=== PATIENT | male | born 1940 | race Caucasian/White ===

== ENCOUNTER → 2017-11-23 | Outpatient (CLI) | payer MEDICARE ==
[2017-11-23 16:07] LABS: ADD MAN DIFF? NO
[2017-11-23 16:14] LABS: BASO % 1 % (0-3); EOS # 0.2 x10^3/uL (0.0-0.7); EOS % 6 % (0-3); HEMATOCRIT 35.3 % (39.0-53.0); HEMOGLOBIN 11.8 g/dL (13.0-17.5); LYMPH % 24 % (24-48); MEAN CORPUSCULAR HEMOGLOBIN 30 pg (25-35); MEAN CORPUSCULAR HGB CONC 33 g/dL (31-37); MEAN CORPUSCULAR VOLUME 90 fL (79-100); MONO # 0.5 x10^3/uL (0.0-1.1); MONO % 13 % (0-9); NEUT # 2.4 x10^3uL (1.8-7.7); NEUT % 57 % (31-73); PLATELET COUNT 146 x10^3/uL (140-400); RED BLOOD COUNT 3.93 x10^6/uL (4.30-5.70); RED CELL DISTRIBUTION WIDTH 14.4 % (11.5-14.5); WHITE BLOOD COUNT 4.3 x10^3/uL (4.0-11.0)
[2017-11-23 16:34] LABS: ALBUMIN 3.2 g/dL (3.4-5.0); ALBUMIN/GLOBULIN RATIO 0.8 (1.0-1.7); ALK PHOS 289 U/L (46-116); ALT (SGPT) 38 U/L (16-63); ANION GAP 9 (6-14); AST (SGOT) 43 U/L (15-37); BLOOD UREA NITROGEN 56 mg/dL (8-26); BUN/CREATININE RATIO 22 (6-20); CALCIUM 9.6 mg/dL (8.5-10.1); CARBON DIOXIDE 26 mmol/L (21-32); CHLORIDE 108 mmol/L (98-107); CREATININE 2.5 mg/dL (0.7-1.3); GFR 25.2; GLUCOSE 79 mg/dL (70-99); SODIUM 143 mmol/L (136-145); TOTAL BILIRUBIN 0.8 mg/dL (0.2-1.0); TOTAL PROTEIN 7.3 g/dL (6.4-8.2)
[2017-11-24 03:14] LABS: MRSA BY PCR Negative (Negative)
== END | disposition home or self-care (01) ==
LOC: SURGPAT 15:03
DX: M48.061 Spinal stenosis, lumbar region without neurogenic claudication (principal); M47.896 Other spondylosis, lumbar region; I10 Essential (primary) hypertension; E11.9 Type 2 diabetes mellitus without complications; Z79.4 Long term (current) use of insulin
CPT/HCPCS: 36415; 80053; 83036; 85025; 87641

== ENCOUNTER 2017-11-25 10:14 | Day surgery (SDC) | payer MEDICARE ==
[~2017-11-25 10:14] MED LIST: BUPIVAC MPF-EPI 0.5%-1:200000 30 ML VIAL. INJ; HYDROmorphone 2 MG/ML VIAL IV; LIDOCAINE 1% PF 2 ML VIAL. ID; ONDANSETRON PF 4 MG/2 ML VIAL. IV; PROCHLORPERAZINE 10 MG/2 ML VIAL. IV; ceFAZolin 2GM PREMIX 2 GM/50 ML BAG IV; fentaNYL PF VIAL 100 MCG/2 ML VIAL IV
[2017-11-25] MEDS ORDERED: MIDAZOLAM HCL/PF 2 MG/2 ML VIAL. (10:23)
[2017-11-25] MEDS ORDERED: REMIFENTANIL 2 MG VIAL. IV (10:23)
[2017-11-25] MEDS ORDERED: ROCURONIUM 50 MG/5 ML VIAL. (10:23)
[2017-11-25] MEDS ORDERED: ONDANSETRON PF 4 MG/2 ML VIAL. (10:25)
[2017-11-25] MEDS ORDERED: PHENYLEPHRINE 10 MG/ML VIAL. (10:25)
[2017-11-25] MEDS ORDERED: DESFLURANE > 120 MINUTES IH (10:25)
[2017-11-25] MEDS ORDERED: DEXAMETHASONE SOD PHOS 20 MG/5 ML VIAL. (10:25)
[2017-11-25] MEDS ORDERED: PROPOFOL 20 ML IV (10:25)
[2017-11-25] MEDS ORDERED: GLYCOPYRROLATE 1 MG/5 ML VIAL. (10:25)
[2017-11-25] MEDS ORDERED: PROPOFOL 50 ML IV ×2 (10:26→12:34)
[2017-11-25] MEDS: IV RINGERS,LACTATED 1000ML 1,000 ML IV (11:14)
[2017-11-25] MEDS ORDERED: fentaNYL PF VIAL 100 MCG/2 ML VIAL (12:22)
[2017-11-25] MEDS ORDERED: NEOSTIGMINE METHYLSULFATE 5 MG/5 ML SYRINGE. (12:35)
[2017-11-25] MEDS: THROMBIN TOPICAL 20,000 UNIT SPRAY.SYRN KIT TP (12:37)
[2017-11-25] MEDS: KETOROLAC 60 MG/2 ML INJ FOR OR. (12:37)
[2017-11-25] MEDS: BACITRACIN 50,000 UNIT in IV NORMAL SALINE 1000ML BAG 1,000 ML IRR (12:37)
[2017-11-25] MEDS: GELATIN SPONGE SIZE 100. (12:37)
[2017-11-25] MEDS: EPINEPHrine 1 MG/ML VIAL INJ (12:37)
[2017-11-25] MEDS: BUPIVACAINE MPF 0.5% 30 ML VIAL. IJ (12:37)
[2017-11-25] MEDS ORDERED: ePHEDrine PF IN SALINE 50 MG/5 ML DISP.SYRIN IV (14:00)
[2017-11-25] MEDS ORDERED: REMIFENTANIL 1 MG VIAL. IV (14:36)
[2017-11-25 15:18] LABS: POC GLUCOSE 135 mg/dL (70-99)
[2017-11-25] MEDS: MORPHINE SULFATE 4 MG/ML DISP.SYRIN. IV ×2 (15:50→16:17)
[2017-11-25] MEDS ORDERED: HYDROcodone/APAP 7.5/325MG 1 TAB TABLET PO (16:45)
[2017-11-25] MEDS: HYDROcodone/APAP 7.5/325MG 1 TAB TABLET PO (17:15)
== END 2017-11-25 17:27 | disposition home or self-care (01) ==
LOC: SURG 10:14
DX: M48.062 Spinal stenosis, lumbar region with neurogenic claudication (principal); I12.9 Hypertensive chronic kidney disease with stage 1 through stage 4 chronic kidney disease, or unspecified chronic kidney disease; E11.22 Type 2 diabetes mellitus with diabetic chronic kidney disease; N18.9 Chronic kidney disease, unspecified; G47.33 Obstructive sleep apnea (adult) (pediatric); I25.2 Old myocardial infarction; I25.10 Atherosclerotic heart disease of native coronary artery without angina pectoris; E78.5 Hyperlipidemia, unspecified; Z94.4 Liver transplant status; Z98.890 Other specified postprocedural states; Z83.3 Family history of diabetes mellitus; Z79.899 Other long term (current) drug therapy; Z79.4 Long term (current) use of insulin; Z86.718 Personal history of other venous thrombosis and embolism; Z85.46 Personal history of malignant neoplasm of prostate; Z85.05 Personal history of malignant neoplasm of liver
CPT/HCPCS: 63030; 76000; 82962; 88304; 88311; 97162-GP; 97530-GP; J0171; J0690; J1100; J1885; J2250; J2270; J2405; J2704; J2710; J3010; J3490; J7030

== ENCOUNTER → 2018-03-08 | Outpatient (CLI) | payer MEDICARE | END | disposition home or self-care (01) | LOC: KCIC MRI 10:30 | DX: M48.061 Spinal stenosis, lumbar region without neurogenic claudication (principal); M51.36 Other intervertebral disc degeneration, lumbar region | CPT/HCPCS: 72148 ==

== ENCOUNTER → 2018-10-27 | Outpatient (CLI) | payer MEDICARE ==
[2017-11-25 16:12] VITALS: BP 175/86
[~2018-10-27] MED LIST changes: +ACET325T9 PO; +APIX5TAB PO; +ASPI-630 PO; +ATOR40TA PO; -BUPIVAC MPF-EPI 0.5%-1:200000 30 ML VIAL. INJ; +CARV3.1210 PO; +CHOL10003 PO; +CIPR500T PO; +CYCL25CA PO; +DOCU-109 PO; +GABA300C18 PO; +HYDR-2765 PO; -HYDROmorphone 2 MG/ML VIAL IV; +INSU100C4 SQ; +INSU100I13 SQ; +INSU300I SQ; +IOHEXOL 180 MG/ML 10 ML VIAL. ONE; +LEVO150T5 PO; -LIDOCAINE 1% PF 2 ML VIAL. ID; +MAGN400T3 PO; +NITR0.4T SL; +OMEG1CAP6 PO; -ONDANSETRON PF 4 MG/2 ML VIAL. IV; +OXYB5TAB7 PO; +PANT20TA2 PO; -PROCHLORPERAZINE 10 MG/2 ML VIAL. IV; +SILD50TA PO; +TAMS0.4C97 PO; +TRAM50TA PO; -ceFAZolin 2GM PREMIX 2 GM/50 ML BAG IV; -fentaNYL PF VIAL 100 MCG/2 ML VIAL IV; +methylPREDNISolone ACETATE 40 MG/ML VIAL. ONE; +methylPREDNISolone ACETATE 80 MG/ML VIAL. ONE
--- NOTE | 2018-10-28 02:29 | PAIN ---
DATE OF SERVICE: 10/27/2018 INITIAL CONSULTATION FOR PAIN CLINIC CHIEF COMPLAINT: Low back and bilateral lower extremity pain. HISTORY OF PRESENT ILLNESS: This is a 78-year-old male who presents with history of pain for about 10 months in the low back, more on the left than the right side, radiating to posterior gluteus and posterior thigh to some extent, but mainly across the low back. The patient reports he had surgery with diskectomy on 11/2017 and really had no significant improvement after the surgery. Pain has been getting worse, mainly noted with walking; better with sitting, better with lying down; does not awaken him from sleep at night, he can sleep through the night; better with sitting; does not have significant pain, but with standing and walking, the pain begins after about 4-5 minutes. The patient reports he has to stop and wait after he walks for about 5-10 minutes and rest to take care of the pain. The patient reports no bowel or bladder incontinence. Again, significant fatigability in the lower extremities, mainly in the left side. The patient reports it is sharp, stabbing and aching across the low back with numbness and tingling into the hips and legs, mostly on the left side, with some burning and cramping in quality in the back as well. The patient tried physical therapy, doing some stretching exercises, he continues to walk daily even though the pain is limiting him from doing this as much as he would like. He is taking Tylenol, which has not been decreasing the pain significantly. The patient reports his pain is 8 on a scale of 10 currently, can be as low as 1 or 2 with sitting and does not awaken him from sleep. The patient reports disability rate from 0-10, 10 being the worst is 8 in all categories, family and home responsibilities, recreation, social activity, sexual behavior, occupation, self-care and life support activities. The patient did have an MRI scan dated 03/08/2018 showing post bilateral hemilaminotomy at L3-L4 with change in degenerative disk disease throughout the lumbar spine, mild central canal stenosis at L2-L3, moderate central spinal canal stenosis at L4-L5 and severe left-sided central spinal canal stenosis at L5-S1 with disk bulge and left paracentral focal disk herniation at L5-S1 and extruding inferiorly and laterally to the left side. The patient reports no loss of function, but again significant fatigability, especially in the left leg, with both legs with walking. PAST MEDICAL HISTORY: Significant for hypertension; arthritis; type 2 diabetes, non-insulin dependent; cirrhosis of the liver; coronary artery disease. PREVIOUS SURGERY: Include liver transplant in 2001, lumbar laminectomy in 2018, bilateral torn ACL and seed placement for previous prostate cancer. CURRENT MEDICATIONS: Include ciprofloxacin, fish oil, insulin, docusate, oxybutynin, Viagra, Flomax, Protonix, nitroglycerin, magnesium, levothyroxine, ____, cholecalciferol, carvedilol, Lipitor and Tylenol. ALLERGIES: The patient has no known drug allergies. FAMILY HISTORY: Significant for heart disease, high blood pressure and diabetes. SOCIAL HISTORY: The patient does not drink alcohol; does not smoke cigarettes or other tobacco products; does not use any illegal, illicit or recreational drugs. He is marries with his spouse, lives locally in [place], [place]. Reports he is currently retired. REVIEW OF SYSTEMS: The patient's review of systems is positive for those items mentioned in history of present illness. All systems reviewed and otherwise negative. It is complete, full and well documented on the patient's chart. PHYSICAL EXAMINATION: VITAL SIGNS: The patient's blood pressure is 161/80, pulse 77, respirations are 18, temperature 98.0 degrees Fahrenheit, height is 5 feet 8-1/2 inches, weight is 216 pounds. GENERAL: The patient is awake, alert, oriented, appropriate, very pleasant demeanor. HEENT: Head shows normocephalic, atraumatic. Extraocular movements intact and symmetrical. Oral cavity: Mucous membranes moist and pink. Dentition is intact. NECK: Shows anterior throat supple without palpable lymphadenopathy noted. Swallow reflex is symmetrical. CHEST: Shows normal on inspection. Breath sounds are clear to auscultation bilaterally. HEART: Shows S1, S2 clear. No murmurs auscultated. ABDOMEN: Obese and soft, nontender, nondistended. The patient has well-healed surgical scarring on inspection. With palpation shows some mild tenderness, but only diffusely without organomegaly noted. No rebound or guarding demonstrated. BACK: Shows spine grossly in the midline. Slight exaggeration of thoracic kyphosis, normal cervical lordotic curvature and some flattening of lumbar lordotic curvature. Well-healed surgical scar in the lumbar distribution. Lumbar paraspinous muscle shows symmetrical on inspection; on palpation, shows some moderate tenderness diffusely as well in the low lumbar distribution only without radiation. No trigger points. No atrophy, hypertrophy or symmetry. The patient has no tenderness over the spinous processes, sacrum or sacroiliac regions. The patient has good rotational motion of the lumbar spine, both laterally greater than 10 degrees right and left as well as extension greater than 10 degrees, forward flexion 45 degrees without pain reported in any of these rotational maneuvers including extension. EXTREMITIES: Lower extremities show deep tendon reflexes at 1+ in the patella and tendo calcaneus tendons are equal. Motor exam is strong with 5/5 dorsiflexion, extension, quadriceps and hamstring flexion symmetrical without deficit. Peripheral pulses are 1+ posterior tibia. No peripheral edema is noted bilaterally. Lower extremities are warm and dry to touch, equal in color and appearance. Straight leg raise noted to be negative for reproduction of any radicular symptoms bilaterally. Gaenslen's and Bucky's maneuvers are negative bilaterally as well. SKIN: Shows warm and dry, good turgor. No edema. No sores, rashes or bruising. NEUROLOGIC: The patient is able to stand, stand on his toes without significant difficulty or loss of balance, walks with a slight shuffling gait, does not appear to favor the right or left lower extremity significantly, not using any assistive devices to ambulate. IMPRESSION: This is a 78-year-old male with: 1. Approximate 10-month history of increasing pain in the low back, bilateral lower extremities, left greater than right. 2. MRI scan of lumbar spine as noted. 3. History of lumbar laminectomy and diskectomy at L3-L4. 4. Hypertension. 5. Arthritis. 6. Diabetes. 7. History of prostate cancer. PLAN: Options were discussed with the patient including conservative medical management, physical therapy, interventional techniques. He would like to pursue interventional techniques. We discussed a lumbar epidural steroid injection using description as well as anatomical models to describe the procedure. Risks were then discussed including, but not limited to bleeding, infection, possibility of epidural hematoma and subsequent neurological compromise, dural puncture, headaches, spinal cord and/or nerve damage, side effects of steroid medication and poor results regarding pain control. The patient understands and wished to proceed. The patient will return to clinic in approximately 2 weeks for followup. She was counseled as to return appointment, activity level and side effects to be aware of. DIAGNOSIS: Lumbar radiculopathy with lumbar degenerative disk disease, post-lumbar laminectomy syndrome. PROCEDURE: Lumbar epidural steroid injection, translaminar approach L5-S1 level using C-arm fluoroscopic guidance under sterile prep and drape using local anesthetic. MEDICATION INJECTED: A total of 120 mg Depo-Medrol plus 10 mL of preservative-free normal saline and 2 mL of Isovue for contrast. CONDITION AT DISCHARGE: Stable. The patient tolerated the procedure well, had no complications. KAITLIN SUMNER MD DR: NJ/jasmin JOB#: [id number] / [id number]
== END | disposition home or self-care (01) ==
LOC: PNCL 13:02
PROVIDERS: ATTEND Anesthesiology
DX: M51.16 Intervertebral disc disorders with radiculopathy, lumbar region (principal); M96.1 Postlaminectomy syndrome, not elsewhere classified; I10 Essential (primary) hypertension; E11.9 Type 2 diabetes mellitus without complications; M19.90 Unspecified osteoarthritis, unspecified site; Z98.890 Other specified postprocedural states; Z85.46 Personal history of malignant neoplasm of prostate; I25.10 Atherosclerotic heart disease of native coronary artery without angina pectoris; K74.60 Unspecified cirrhosis of liver; Z79.4 Long term (current) use of insulin; Z79.899 Other long term (current) drug therapy; Z82.49 Family history of ischemic heart disease and other diseases of the circulatory system; Z83.3 Family history of diabetes mellitus
CPT/HCPCS: 62323; J1030; J1040; Q9965

== ENCOUNTER → 2019-01-12 | Outpatient (CLI) | payer MEDICARE ==
[2017-11-25 16:12] VITALS: BP 175/86
[~2019-01-12] MED LIST changes: -IOHEXOL 180 MG/ML 10 ML VIAL. ONE; -methylPREDNISolone ACETATE 40 MG/ML VIAL. ONE; -methylPREDNISolone ACETATE 80 MG/ML VIAL. ONE
--- NOTE | 2019-01-12 14:28 | RAD ---
Lateral lumbar spine-3 views, 01/12/2019: History: Back pain, previous back surgery Lateral views of the lumbar spine were obtained in a supine position as well as in an upright position with flexion and extension as requested. There is is disc space narrowing and moderate marginal spurring throughout the lumbar spine. There are moderate degenerative changes involving multiple facet joints bilaterally. There is slight retrolisthesis of L2 relative to L3 which does not appear to change significantly with flexion and extension. No fracture is identified on this limited exam. Aortic calcific plaquing is evident. There is anterior bulging or tortuosity of the infrarenal abdominal aorta. IMPRESSION: 1. Moderate multilevel degenerative change. 2. Minimal retrolisthesis at L2-3.
== END | disposition home or self-care (01) ==
LOC: RAD 13:06
PROVIDERS: ATTEND Neurological Surgery
DX: M48.061 Spinal stenosis, lumbar region without neurogenic claudication (principal); M47.816 Spondylosis without myelopathy or radiculopathy, lumbar region; M43.16 Spondylolisthesis, lumbar region; I70.0 Atherosclerosis of aorta
CPT/HCPCS: 72100

== ENCOUNTER → 2019-05-09 | Outpatient (CLI) | payer MEDICARE ==
[2017-11-25 16:12] VITALS: BP 175/86
[~2019-05-09] MED LIST changes: -NITR0.4T SL; +NITR0.4T24 SL
--- NOTE | 2019-05-09 15:16 | KCIC ---
MRI of the lumbar spine without contrast 05/09/2019 CLINICAL HISTORY: Low back pain. History of previous lumbar spine surgery. Recent fall over the last 3 weeks with increased pain. TECHNIQUE: Unenhanced T1-weighted and T2-weighted sagittal and axial and inversion recovery sagittal images of the lumbar spine were obtained. FINDINGS: Comparison study is dated 03/08/2018. Very mild S-shaped curvature of the thoracolumbar spine is seen. Degenerative signal changes are seen involving all of the disks of the lumbar spine. Degenerative signal changes are seen within the marrow surrounding these discs. Loss of height of the L3-4, L4-5 and L5-S1 discs is noted. The conus medullaris is normal morphology, position, and signal characteristics. At the L1-2 disc space there is a mild generalized disc bulge. Degenerative changes are seen involving the facet joints bilaterally. There is mild ligamentum flavum hypertrophy bilaterally. These findings do not result in significant central spinal canal or neural foraminal stenosis. At the L2-3 disc space there is a mild to moderate generalized disc bulge. Degenerative changes are seen involving the facet joints bilaterally. There is moderate ligamentum flavum hypertrophy bilaterally. These findings when combined result in mild central spinal canal stenosis. Mild right greater than left neural foraminal stenosis is seen. At the L3-4 disc space the patient is post bilateral hemilaminotomy. There is a mild to moderate generalized disc bulge. This is eccentric to the right. Degenerative changes are seen involving the facet joints bilaterally. These findings do not result in significant central spinal canal stenosis. Mild to moderate right greater than left neural foraminal stenosis is seen. At the L4-5 disc space there is a mild to moderate generalized disc bulge. Degenerative changes are seen involving the facet joints bilaterally. There is mild to moderate ligamentum flavum hypertrophy bilaterally. These findings when combined result in mild to moderate central spinal canal stenosis. Mild to moderate left greater than right neural foraminal stenosis is seen. At the L5-S1 disc space there is a mild to moderate generalized disc bulge. Superimposed on this disc bulge is a left paracentral focal disc herniation which extrudes inferiorly and laterally to the left. This demonstrates decreased signal intensity on the T1-weighted, T2-weighted and inversion recovery images suggesting that it may be partially calcified. It measures 1.3 x 1.3 x 0.9 cm in craniocaudal, transverse and AP dimensions.It has not significantly changed when compared to the previous examination. Degenerative changes are seen involving the facet joints bilaterally. These findings result in severe left-sided central spinal canal stenosis. Moderate bilateral neural foraminal stenosis is seen. IMPRESSION: 1. Post bilateral hemilaminotomy at L3-4. 2. The changes of degenerative disc disease are seen throughout the lumbar spine. These findings result in mild central spinal canal stenosis at L2-3, mild to moderate central spinal canal stenosis at L4-5 and severe left-sided central spinal canal stenosis at L5-S1. Multilevel neural foraminal stenosis of varying severity is seen as discussed above. Electronically signed by: rAik Flores MD (05/09/2019 3:13 PM) [id number]
== END | disposition home or self-care (01) ==
LOC: KCIC MRI 13:43
PROVIDERS: ATTEND Neurological Surgery
DX: M51.36 Other intervertebral disc degeneration, lumbar region (principal); M51.27 Other intervertebral disc displacement, lumbosacral region; M48.07 Spinal stenosis, lumbosacral region; M89.38 Hypertrophy of bone, other site
CPT/HCPCS: 72148

== ENCOUNTER → 2019-06-07 | Outpatient (CLI) | payer MEDICARE ==
[2017-11-25 16:12] VITALS: BP 175/86
[~2019-06-07] MED LIST changes: +BUPIVACAINE MPF 0.25% 10 ML VIAL. ONE; +IOHEXOL 180 MG/ML 10 ML VIAL. ONE; -MAGN400T3 PO; +MAGN400T5 PO; +OXYB5TAB10 PO; -OXYB5TAB7 PO; +methylPREDNISolone ACETATE 40 MG/ML VIAL. ONE; +methylPREDNISolone ACETATE 80 MG/ML VIAL. ONE
--- NOTE | 2019-06-07 10:25 | PAIN ---
DATE OF SERVICE: 06/07/2019 PROGRESS NOTE FOR PAIN CLINIC DIAGNOSES: Lumbar degenerative disk disease and lumbar post-laminectomy syndrome, lumbar and lumbosacral spondylosis. HISTORY OF PRESENT ILLNESS: The patient is a 79-year-old male who returns for followup status post lumbar epidural steroid injection. He was last seen on 10/27/2018. The patient reports no significant increase or decrease in pain. He has recently seen his neurosurgeon, who is not recommending any surgery at this time and is recommending some other modalities of conservative treatment. We discussed facet joint blocks with him on his last visit and he would like to proceed with that today. The patient reports the pain is seen mainly in the low back, is not radiating into the lower extremities as much or as frequently as it was, but still significant pain in the low back itself with walking, especially over about 10-15 minutes that he has to sit down to decrease the pain, which does decrease the pain fairly significantly within a few minutes. The patient reports it does not bother him when he is sitting or lying down, does not awaken him from sleep at night. The patient reports the pain is 8 on a scale of 10 at its worst, average and least at all times, and is 8 today. The patient reports it is aching and dull across the low back, again worse with extension of the lumbar spine and axial loading in the low back, better with forward flexion and with sitting, exacerbated by walking. The patient reports no new motor or sensory deficits, no new bowel or bladder incontinence. The patient did have a new MRI scan, which we reviewed with him and his spouse, showing some changes of hemilaminotomy at L3-L4, degenerative disk disease throughout the lumbar spine resulting in mild central spinal canal stenosis and [id number] central spinal canal stenosis at L4-L5, and severe left-sided central spinal canal stenosis at L5-S1. PHYSICAL EXAMINATION: VITAL SIGNS: The patient's blood pressure is 147/62, pulse 67, respirations 18, temperature 98.2 degrees Fahrenheit, weight is 221 pounds. GENERAL: The patient is awake, alert, oriented, appropriate, very pleasant demeanor. HEENT: Head is normocephalic, atraumatic. Extraocular movements are intact and symmetrical. Oral cavity: Mucous membranes are moist and pink. Dentition is intact. NECK: Shows anterior throat supple without palpable lymphadenopathy noted. Swallow reflex is symmetrical. CHEST: Shows normal on inspection. Breath sounds are clear to auscultation bilaterally. HEART: Shows S1, S2 clear. No murmurs auscultated. ABDOMEN: Soft, nontender, nondistended. No palpable organomegaly is noted. No rebound or guarding demonstrated. BACK: Shows spine grossly in midline, normal appearing thoracic kyphosis and minor flattening of lumbar lordotic curvature. Well-healed surgical scar noted. Lumbar paraspinous muscle shows symmetrical on inspection, with palpation shows some moderate tenderness diffusely bilaterally, but only diffusely without significant radiation. EXTREMITIES: The patient's lower extremities show deep tendon reflexes at 1+ in the patellar and tendo-calcaneus tendons. Motor exam is strong with 5/5 dorsiflexion, extension, quadriceps, and hamstring flexion symmetrical. Peripheral pulses are 1+ posterior tibia. No peripheral edema is noted bilaterally. Options were discussed with the patient. The patient's old chart was reviewed as his current medication regimen updated. Current review of systems updated today as well. We will proceed with bilateral facet joint injections at L4-L5 and L5-S1. Risks were discussed including but not limited to bleeding, infection, possibility of epidural hematoma, subsequent neurologic compromise, dural puncture, headaches, spinal cord and/or nerve damage, side effects of steroid medication and poor results regarding pain control. The patient understands and wished to proceed. The patient will return to clinic in approximately 2 weeks for followup. He was counseled as to return appointment, activity level, and side effects to be aware of. DIAGNOSES: Lumbar and lumbosacral spondylosis. PROCEDURE: Bilateral L4-L5 and L5-S1 facet joint injections using C-arm fluoroscopic guidance, under sterile prep and drape using local anesthetic. MEDICATION INJECTED: A total of 120 mg Depo-Medrol plus 4 mL of 0.25% bupivacaine and 2 mL of contrast. CONDITION AT DISCHARGE: Stable. The patient tolerated the procedure well, had no complications. KAITLIN SUMNER MD DR: NJ/jasmin JOB#: [id number] / [id number]
== END ==
LOC: PNCL 08:39
PROVIDERS: ATTEND Anesthesiology
DX: M47.817 Spondylosis without myelopathy or radiculopathy, lumbosacral region (principal); M51.36 Other intervertebral disc degeneration, lumbar region; M96.1 Postlaminectomy syndrome, not elsewhere classified
CPT/HCPCS: 64493; 64494; J1030; J1040; J3490; Q9965